=== PATIENT | female | born 1965 | race Caucasian/White ===

== ENCOUNTER 2019-06-29 14:45 | Outpatient (CLI) | payer OTHER ==
--- NOTE | 2019-06-29 16:22 | Mammography Report ---
DIGITAL SCREENING MAMMOGRAM WITH CAD, 06/29/2019 INDICATION: Routine screening mammography. TECHNIQUE: Digital bilateral 2D mammography was obtained in the craniocaudal and mediolateral obliq ue projections. This examination was interpreted with the benefit of Computer-Aided Detection analysi s. COMPARISON: 05/16/2018 FINDINGS: Breast Density: The breasts are heterogeneously dense, which may obscure small masses. A left asymmetry on the MLO view requires additional imaging. No architectural distortion or suspicio us calcifications of the left breast. There is no evidence of dominant mass, suspicious calcification s or architectural distortion in the right breast. IMPRESSION: Left asymmetry requiring additional imaging. Recommend recall for left lateral and spot c ompression MLO views and left breast ultrasound if needed. Follow up recommendation: Special View: Spot Category 0: Incomplete. Needs additional imaging evaluation and/or prior mammograms for comparison. A "normal" or negative report should not discourage follow up or biopsy of a clinically significant f inding. A written summary of these findings will be mailed to the patient. The patient will be entered into a mammography reporting system which will generate a reminder letter for the patient's next appointmen t at the appropriate interval. The [employer] recommends yearly mammograms starting at age 40 and continuing as l gilberto as a woman is in good health. Breast MRI is recommended for women with an approximate 20-25% or greater lifetime risk of breast cancer, including women with a strong family history of breast or ova nanci cancer or who have been treated for Hodgkin's disease. Signer Name: Chris Haji MD Signed: 06/29/2019 4:18 PM Workstation Name: [id number]
== END 2019-06-29 14:46 | disposition home or self-care (01) ==
LOC: MAMMO 14:45
PROVIDERS: ATTEND Specialist
DX: Z12.31 Encounter for screening mammogram for malignant neoplasm of breast (principal)
CPT/HCPCS: 77067

== ENCOUNTER 2019-09-13 09:39 | Outpatient (CLI) | payer OTHER ==
--- NOTE | 2019-09-13 11:52 | Mammography Report ---
DIGITAL DIAGNOSTIC MAMMOGRAM WITH CAD, 09/13/2019 INDICATION: Recall for asymmetry at screening. INCONCLUSIVE MAMMOGRAM/LUMP TECHNIQUE: Digital left mammographic imaging was performed. This examination was interpreted with the benefit of Computer-aided Detection analysis. COMPARISON: 06/29/2019 FINDINGS: Breast Density: The breast is heterogeneously dense, which may obscure small masses. Lateral medial and spot compression MLO views were performed and are negative. Satisfactory effacemen t of asymmetry on the spot image. IMPRESSION: No mammographic evidence of malignancy. Follow up recommendation: Routine yearly BI-RADS Category 1: Negative. A "normal" or negative report should not discourage follow up or biopsy of a clinically significant f inding. A written summary of these findings will be mailed to the patient. The patient will be entered into a mammography reporting system which will generate a reminder letter for the patient's next appointmen t at the appropriate interval. According to the [employer], yearly mammograms are recommended starting at age 40 and continuing as long as a woman is in good health. Breast MRI is recommended for women with an siri roximately 20-25% or greater lifetime risk of breast cancer, including women with a strong family his tory of breast or ovarian cancer and women who have been treated for Hodgkin's disease. Signer Name: Chris Haji MD Signed: 09/13/2019 11:47 AM Workstation Name: [id number]
--- NOTE | 2019-09-13 13:18 | Ultrasound Report ---
LIMITED LEFT BREAST ULTRASOUND HISTORY: An upper asymmetry on recent mammogram. COMPARISON: Mammograms from today and 06/29/2019 FINDINGS: Focused sonographic evaluation upon the inner location of the left breast from 9:00 to 3:00 demonstrates no distinct abnormality. IMPRESSION: Negative upper left breast ultrasound. Since today's mammogram is negative, recommend return to routine mammographic screening. BIRADS 1: Negative. Signer Name: Chris Haji MD Signed: 09/13/2019 1:13 PM Workstation Name: [id number]
== END 2019-09-13 09:40 | disposition home or self-care (01) ==
LOC: MAMMO 09:39
PROVIDERS: ATTEND Specialist
DX: R92.2 Inconclusive mammogram (principal)

== ENCOUNTER 2021-10-02 11:11 | Outpatient (CLI) | payer OTHER ==
--- NOTE | 2021-10-02 15:54 | Mammography Report ---
DIGITAL SCREENING MAMMOGRAM WITH CAD, 10/02/2021 CLINICAL INFORMATION / INDICATION: Routine screening mammography. SCREENING MAMMOGRAM TECHNIQUE: Digital bilateral 2D mammography was obtained in the craniocaudal and mediolateral obliqu e projections. This examination was interpreted with the benefit of Computer-Aided Detection analysis . COMPARISON: 06/29/2019 and 05/16/2018 FINDINGS: Breast Density: The breasts are heterogeneously dense, which may obscure small masses. No dominant mass, suspicious calcifications, or architectural distortion in either breast. Largely unchanged nodular densities in the breasts, commonly fibroglandular or fibrocystic change. IMPRESSION: No mammographic evidence of malignancy. Follow up recommendation: Routine yearly BI-RADS Category 2: BENIGN. A "normal" or negative report should not discourage follow up or biopsy of a clinically significant f inding. A written summary of these findings will be mailed to the patient. The patient will be entered into a mammography reporting system which will generate a reminder letter for the patient's next appointmen t at the appropriate interval. The [employer] recommends yearly mammograms starting at age 40 and continuing as l gilberto as a woman is in good health. Breast MRI is recommended for women with an approximate 20-25% or greater lifetime risk of breast cancer, including women with a strong family history of breast or ova nanci cancer or who have been treated for Hodgkin's disease. Signer Name: Saeid Brothers MD Signed: 10/02/2021 3:49 PM Workstation Name: [id number]
== END 2021-10-02 11:12 | disposition home or self-care (01) ==
LOC: MAMMO 11:11
PROVIDERS: ATTEND Obstetrics & Gynecology
DX: Z12.31 Encounter for screening mammogram for malignant neoplasm of breast (principal); N64.89 Other specified disorders of breast
CPT/HCPCS: 77067